=== PATIENT | female | born 1975 | race Two or more races ===

== ENCOUNTER 2020-08-18 | Emergency (ER) | payer OTHER ==
[~2020-08-18] VITALS: Ht 154.9 cm; Wt 52.2 kg
[2020-08-18 00:40] VITALS: BP 145/99
== END 2020-08-18 00:45 ==
LOC: ER 00:01
DX: S16.1XXA Strain of muscle, fascia and tendon at neck level, initial encounter (principal); Z72.89 Other problems related to lifestyle; V87.7XXA Person injured in collision between other specified motor vehicles (traffic), initial encounter; Y93.89 Activity, other specified; Y92.488 Other paved roadways as the place of occurrence of the external cause; Y99.8 Other external cause status
CPT/HCPCS: 76857; 99284